=== PATIENT | female | born 1995 ===

== ENCOUNTER 2017-06-16 13:26 | Emergency (ER) | payer MEDICAID ==
[2017-06-16 13:30] VITALS: BP 105/78; PULSE 86; RESP 16; TEMP 98.1; O2SAT 100
--- NOTE | 2017-06-16 13:38 | ED PDOC ---
HPI: General Adult Time Seen by Provider: 06/16/17 13:31 Chief Complaint (Nursing): ENT Problem Chief Complaint (Provider): Sore Throat History Per: Patient History/Exam Limitations: no limitations Onset/Duration Of Symptoms: Days (x4) Current Symptoms Are (Timing): Still Present Additional Complaint(s): Tanvi Brown, a 22 year old female presents to the emergency department complaining of sore throat, onset . She has a past medical history of asthma. Denies fever, abdominal pain, or rash. Reports no sick contacts or recent travels. PMD:Shaik Gregorio Past Medical History Reviewed: Historical Data, Nursing Documentation, Vital Signs Vital Signs: Last Vital Signs Temp 98.1 F 06/16/17 13:28 Pulse 86 06/16/17 13:28 Resp 16 06/16/17 13:28 BP 105/78 06/16/17 13:28 Pulse Ox 100 06/16/17 13:38 - Medical History PMH: Asthma - Surgical History Surgical History: No Surg Hx - Family History Family History: States: Unknown Family Hx - Social History Current smoker - smoking cessation education provided: No Alcohol: Social Drugs: Denies - Immunization History Hx Tetanus Toxoid Vaccination: Yes - Home Medications Home Medications: Ambulatory Orders Medication Instructions Recorded Ciprofloxacin HCl [Cipro] 500 mg PO BID #14 tab 07/13/14 Nitrofurantoin Macrocrystals 100 mg PO BID #10 cap 05/02/15 [Macrobid] Cephalexin [cephalexin] 500 mg PO BID #20 cap 06/12/15 Amoxicillin [Amoxil 500 mg Cap] 500 mg PO TID #30 cap 06/16/17 Naproxen [Naprosyn] 500 mg PO BID PRN #30 tab 06/16/17 - Allergies Allergies/Adverse Reactions: Allergies Allergy/AdvReac Type Severity Reaction Status Date / Time No Known Allergies Allergy Verified 07/13/14 21:24 Review of Systems ROS Statement: Except As Marked, All Systems Reviewed And Found Negative Constitutional: Negative for: Fever, Chills ENT: Positive for: Throat Pain Gastrointestinal: Negative for: Abdominal Pain Skin: Negative for: Rash Physical Exam - Reviewed Nursing Documentation Reviewed: Yes Vital Signs Reviewed: Yes - Physical Exam Appears: Positive for: Well, Non-toxic, No Acute Distress Head Exam: Positive for: ATRAUMATIC, NORMAL INSPECTION, NORMOCEPHALIC Skin: Positive for: Normal Color, Warm, Dry Eye Exam: Positive for: EOMI, Normal appearance, PERRL ENT: Positive for: Pharyngeal Erythema, Tonsillar Exudate, Tonsillar Swelling, Other (Bilateral cervical lymphadenopathy ) Neck: Positive for: Normal, Painless ROM Cardiovascular/Chest: Positive for: Regular Rate, Rhythm. Negative for: Murmur Respiratory: Positive for: Normal Breath Sounds Gastrointestinal/Abdominal: Positive for: Soft. Negative for: Tenderness, Organomegaly Neurologic/Psych: Positive for: Alert, Oriented (x3) - ECG O2 Sat by Pulse Oximetry: 100 (RA) Pulse Ox Interpretation: Normal Medical Decision Making Medical Decision Making: Time: 13:36 Initial Plan: --Throat Culture Clinical Impression: Pharyngitis Upon provider evaluation patient is medically stable, and requires no further treatment in the ED at this time. Patient will be discharged home with Rx for Amoxil and Naprosyn. Counseling was provided and all questions were answered regarding diagnosis and need for follow up with PMD. There is agreement to discharge plan. Return if symptoms persist or worsen. Scribe Attestation: Documented by Candido Salinas, acting as a scribe for Elgin Stark PA-C Provider Scribe Attestation: All medical record entries made by the Scribe were at my direction and personally dictated by me. I have reviewed the chart and agree that the record accurately reflects my personal performance of the history, physical exam, medical decision making, and the department course for this patient. I have also personally directed, reviewed, and agree with the discharge instructions and disposition. Disposition - Clinical Impression Clinical Impression: Pharyngitis - Patient ED Disposition Is Patient to be Admitted: No - Disposition Referrals: [facility] [Outside] [facility] [Outside] Disposition: Routine/Home Disposition Time: 13:36 Condition: STABLE Additional Instructions: Drink plenty of water. Do warm salt water gargles. Rest. Follow up with your PMD in 2 days for further evaluation. Prescriptions: Amoxicillin [Amoxil 500 mg Cap] 500 mg PO TID #30 cap Naproxen [Naprosyn] 500 mg PO BID PRN #30 tab PRN Reason: Pain Instructions: Pharyngitis (ED) Forms: [employer] [facility] (Urdu), [facility] ED School/Work Excuse Print Language: MONGOLIAN
== END 2017-06-16 13:56 | disposition home or self-care (01) ==
LOC: H.ER 13:26
DX: J02.9 Acute pharyngitis, unspecified (principal)

== ENCOUNTER 2017-09-10 16:11 | Emergency (ER) | payer MEDICAID ==
[2017-09-10 16:19] VITALS: BP 132/84; PULSE 87; RESP 18; TEMP 98.5; O2SAT 100
[2017-09-10] MEDS ORDERED: Sodium Chloride 0.9% 1,000 ML IV STA (16:42)
--- NOTE | 2017-09-10 17:07 | ED PDOC ---
HPI: Female Pain Time Seen by Provider: 09/10/17 16:24 Chief Complaint (Nursing): Female Genitourinary Chief Complaint (Provider): Vaginal bleeding x 5 months History Per: Patient History/Exam Limitations: no limitations Onset/Duration Of Symptoms: Days Current Symptoms Are (Timing): Still Present Severity: Moderate Pain Scale Rating Of: 7 Additional Complaint(s): PT state she gets depo injections. PT states that she came today because it has been steady and light but today it was heavy associated with suprapubic cramping. Past Medical History Reviewed: Historical Data, Nursing Documentation, Vital Signs Vital Signs: Last Vital Signs Temp 98.5 F 09/10/17 16:16 Pulse 87 09/10/17 16:16 Resp 18 09/10/17 16:16 BP 132/84 09/10/17 16:16 Pulse Ox 100 09/10/17 16:16 - Medical History PMH: Asthma - Surgical History Surgical History: No Surg Hx - Family History Family History: States: Unknown Family Hx - Living Arrangements Living Arrangements: With Family - Social History Current smoker - smoking cessation education provided: No - Immunization History Hx Tetanus Toxoid Vaccination: Yes - Home Medications Home Medications: Ambulatory Orders Medication Instructions Recorded Ciprofloxacin HCl [Cipro] 500 mg PO BID #14 tab 07/13/14 Nitrofurantoin Macrocrystals 100 mg PO BID #10 cap 05/02/15 [Macrobid] Cephalexin [cephalexin] 500 mg PO BID #20 cap 06/12/15 Amoxicillin [Amoxil 500 mg Cap] 500 mg PO TID #30 cap 06/16/17 Naproxen [Naprosyn] 500 mg PO BID PRN #30 tab 06/16/17 - Allergies Allergies/Adverse Reactions: Allergies Allergy/AdvReac Type Severity Reaction Status Date / Time No Known Allergies Allergy Verified 07/13/14 21:24 Review of Systems ROS Statement: Except As Marked, All Systems Reviewed And Found Negative Constitutional: Negative for: Fever, Chills Gastrointestinal: Positive for: Abdominal Pain. Negative for: Nausea, Vomiting , Diarrhea Genitourinary Female: Positive for: Vaginal Bleeding. Negative for: Dysuria Physical Exam - Reviewed Nursing Documentation Reviewed: Yes Vital Signs Reviewed: Yes - Physical Exam Appears: Positive for: Well, Non-toxic, No Acute Distress Head Exam: Positive for: ATRAUMATIC, NORMAL INSPECTION, NORMOCEPHALIC Skin: Positive for: Normal Color, Warm, DRY Eye Exam: Positive for: Normal appearance ENT: Positive for: Normal ENT Inspection Neck: Positive for: Normal, Painless ROM Cardiovascular/Chest: Positive for: Regular Rate, Rhythm Respiratory: Positive for: Normal Breath Sounds. Negative for: Accessory Muscle Use, Respiratory Distress Gastrointestinal/Abdominal: Positive for: Normal Exam, Soft, Tenderness (Mild suprapubic ) Back: Positive for: Normal Inspection Extremity: Positive for: Normal ROM Neurologic/Psych: Positive for: Alert, Oriented - Laboratory Results Result Diagrams: 09/10/17 17:48 09/10/17 17:48 - ECG O2 Sat by Pulse Oximetry: 100 Pulse Ox Interpretation: Normal Disposition - Clinical Impression Clinical Impression: Irregular menses - Patient ED Disposition Is Patient to be Admitted: No - Disposition Disposition: Routine/Home Disposition Time: 19:07 Condition: GOOD Instructions: Absent or Irregular Periods Forms: [facility] (North Korean)
[2017-09-10 17:57] LABS: BASO % 0.2 % (0.0-2.0); EOS # 0.3 K/uL (0.0-0.7); EOS % 1.9 % (0.0-4.0); HEMOGLOBIN 13.2 g/dL (12.0-16.0); LYMPH # 3.4 K/uL (1.0-4.3); LYMPH % 25.6 % (20.0-40.0); MEAN CELL VOLUME 88.2 fl (81.0-99.0); MEAN CORPUSCULAR HEMOGLOBIN 29.7 pg (27.0-31.0); MEAN CORPUSCULAR HGB CONC 33.6 g/dL (33.0-37.0); MEAN PLATELET VOLUME 9.7 fl (7.2-11.7); MONO # 0.6 K/uL (0.0-0.8); MONO % 4.6 % (0.0-10.0); NEUT # 9.1 K/uL (1.8-7.0); NEUT % 67.7 % (50.0-75.0); RBC 4.47 Mil/uL (3.80-5.20); RED CELL DISTRIBUTION WIDTH 12.3 % (11.5-14.5); WHITE BLOOD COUNT 13.5 K/uL (4.8-10.8)
--- NOTE | 2017-09-10 18:01 | US ---
HISTORY: Vaginal bleeding x 5 months COMPARISON: None available. TECHNIQUE: Transvaginal FINDINGS: UTERUS: Measures 6.4 x 2.8 x 4.1 cm. Normal in size and appearance. No fibroid or other mass lesion seen. ENDOMETRIUM: Measures to mm in diameter. Unremarkable. CERVIX: No cervical abnormality identified. RIGHT OVARY: Measures 2.8 x 2.2 x 2.2 cm. No solid mass. Normal flow. LEFT OVARY: Measures 2.3 x 1.9 x 1.2 cm. No solid mass. Normal flow. FREE FLUID: No significant free fluid noted. OTHER FINDINGS: None. IMPRESSION: Unremarkable pelvic ultrasound.
[2017-09-10 18:09] LABS: ALB/GLOB RATIO 1.1 (1.0-2.1); ALT/SGPT 31 U/L (9-52); AST/SGOT 16 U/L (14-36); BLOOD UREA NITROGEN 13 mg/dl (7-17); CALCIUM 8.9 mg/dL (8.4-10.2); GFR AFRICAN-AMERICAN > 60; GFR NON-AFRICAN AMERICAN > 60
== END 2017-09-10 20:15 | disposition home or self-care (01) ==
LOC: H.ER 16:11
DX: N92.6 Irregular menstruation, unspecified (principal); J45.909 Unspecified asthma, uncomplicated
CPT/HCPCS: 76830; 80053; 81025; 85025; 96360; 99284; J7040

== ENCOUNTER 2017-09-15 11:21 | Emergency (ER) | payer MEDICAID ==
[2017-09-15 11:35] VITALS: BP 116/72; PULSE 96; RESP 20; TEMP 98; O2SAT 98; BMI 30.7
[2017-09-15] MEDS ORDERED: Albuterol-Ipratrop 3 mg / 0.5 (3 ml) UD IH STA (11:53)
--- NOTE | 2017-09-15 11:55 | ED PDOC ---
History of Present Illness History of Present Illness: 22 y/o F c PMHx asthma p/w cough x 3 days and chest pain x 1 day. Cough is frequent, productive of yellow sputum. Denies dyspnea or fever. Patient began having chest pain today across chest, occurs when coughing or taking a deep breath. Denies leg swelling, nausea, vomiting. HPI: Influenza Time Seen by Provider: 09/15/17 11:48 Chief Complaint: Cough, Cold, Congestion Past Medical History Vital Signs: Last Vital Signs Temp 98 F 09/15/17 11:34 Pulse 96 H 09/15/17 11:34 Resp 20 09/15/17 11:34 BP 116/72 09/15/17 11:34 Pulse Ox 98 09/15/17 11:34 - Medical History PMH: Asthma - Family History Family History: States: Unknown Family Hx - Immunization History Hx Tetanus Toxoid Vaccination: Yes - Home Medications Home Medications: Ambulatory Orders Medication Instructions Recorded Ciprofloxacin HCl [Cipro] 500 mg PO BID #14 tab 07/13/14 Nitrofurantoin Macrocrystals 100 mg PO BID #10 cap 05/02/15 [Macrobid] Cephalexin [cephalexin] 500 mg PO BID #20 cap 06/12/15 Amoxicillin [Amoxil 500 mg Cap] 500 mg PO TID #30 cap 06/16/17 Naproxen [Naprosyn] 500 mg PO BID PRN #30 tab 06/16/17 Famotidine [Pepcid] 1 tab PO BID #14 tab 09/15/17 Guaifenesin [Mucinex] 1,200 mg PO Q12H #18 ter 09/15/17 Ibuprofen [Motrin] 600 mg PO Q6 #25 tab 09/15/17 - Allergies Allergies/Adverse Reactions: Allergies Allergy/AdvReac Type Severity Reaction Status Date / Time No Known Allergies Allergy Verified 09/15/17 11:42 Review of Systems ROS Statement: Except As Marked, All Systems Reviewed And Found Negative Constitutional: Negative for: Fever Gastrointestinal: Negative for: Abdominal Pain Physical Exam - Physical Exam Comments: Gen: NAD Head: NC Eyes: No scleral icterus ENT: MMM Neck: Supple Chest: No deformity CV: Regular rate Lungs: CTA b/l Abd: Soft, NT Back: No CVA tenderness Extremities: No edema Skin: No rash Neuro: Alert, no focal deficit Medical Decision Making Medical Decision Making: EKG NSR 90 bpm, no ST/T wave changes CXR no consolidation Symptoms consistent with chest wall pain from coughing. Advised albuterol pump, NSAIDs, mucinex. - ECG O2 Sat by Pulse Oximetry: 98 Disposition - Clinical Impression Clinical Impression: Cough, Chest wall pain - Patient ED Disposition Is Patient to be Admitted: No - Disposition Disposition: Routine/Home Disposition Time: 12:57 Condition: STABLE Prescriptions: Famotidine [Pepcid] 1 tab PO BID #14 tab Guaifenesin [Mucinex] 1,200 mg PO Q12H #18 ter Ibuprofen [Motrin] 600 mg PO Q6 #25 tab Instructions: Cough in Adults Forms: [facility] (French)
[2017-09-15] MEDS ORDERED: Albuterol-Ipratrop 3 mg / 0.5 (3 ml) UD ONE (12:13)
--- NOTE | 2017-09-15 13:25 | RAD ---
HISTORY: cough COMPARISON: No prior. TECHNIQUE: Chest PA and lateral FINDINGS: LUNGS: No active pulmonary disease. PLEURA: No significant pleural effusion identified. No pneumothorax apparent. CARDIOVASCULAR: Normal. OSSEOUS STRUCTURES: No significant abnormalities. VISUALIZED UPPER ABDOMEN: Normal. OTHER FINDINGS: None. IMPRESSION: No active disease.
== END 2017-09-15 13:30 | disposition home or self-care (01) ==
LOC: H.ER 11:21
DX: R05 Cough (principal); R07.89 Other chest pain; J45.909 Unspecified asthma, uncomplicated
CPT/HCPCS: 71046; 81025; 96372; 99282; J1885

== ENCOUNTER 2017-11-30 22:19 | Emergency (ER) | payer SELFPAY ==
[2017-11-30 22:19] VITALS: BMI 30.7
[2017-11-30 23:01] VITALS: BP 131/73; PULSE 73; RESP 16; TEMP 97.8; O2SAT 96
--- NOTE | 2017-11-30 23:21 | ED PDOC ---
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 Patient reports localized pain rated 6/10 and swelling to the ankle. Patient did not take any medication prior to arrival. Patient denies any other injury at this time, (-) LOC (-) head injury. Patient denies any prior ankle injury. PMD: Birdie LMP: 3 months ago (on Depo) Past Medical History Reviewed: Historical Data, Nursing Documentation, Vital Signs Vital Signs: Last Vital Signs Temp 97.8 F 11/30/17 22:59 Pulse 73 11/30/17 22:59 Resp 16 11/30/17 22:59 BP 131/73 11/30/17 22:59 Pulse Ox 96 11/30/17 22:59 - Medical History PMH: Asthma - Surgical History Other surgeries: /D&C - Family History Family History: States: Unknown Family Hx - Social History Current smoker - smoking cessation education provided: Yes (<10 cig/day) Alcohol: None Drugs: Denies - Home Medications Home Medications: Ambulatory Orders Medication Instructions Recorded Ciprofloxacin HCl [Cipro] 500 mg PO BID #14 tab 07/13/14 Nitrofurantoin Macrocrystals 100 mg PO BID #10 cap 05/02/15 [Macrobid] Cephalexin [cephalexin] 500 mg PO BID #20 cap 06/12/15 Amoxicillin [Amoxil 500 mg Cap] 500 mg PO TID #30 cap 06/16/17 Naproxen [Naprosyn] 500 mg PO BID PRN #30 tab 06/16/17 Famotidine [Pepcid] 1 tab PO BID #14 tab 09/15/17 Guaifenesin [Mucinex] 1,200 mg PO Q12H #18 ter 09/15/17 Ibuprofen [Motrin] 600 mg PO Q6 #25 tab 09/15/17 Naproxen 500 mg PO BID #20 tab 12/01/17 - Allergies Allergies/Adverse Reactions: Allergies Allergy/AdvReac Type Severity Reaction Status Date / Time No Known Allergies Allergy Verified 11/30/17 22:59 Review of Systems ROS Statement: Except As Marked, All Systems Reviewed And Found Negative Musculoskeletal: Positive for: Other (ankle pain) Physical Exam - Reviewed Nursing Documentation Reviewed: Yes Vital Signs Reviewed: Yes - Physical Exam Appears: Positive for: Well, Non-toxic, No Acute Distress (on cell phone, resting comfortably.) Head Exam: Positive for: NORMOCEPHALIC Skin: Positive for: Normal Color, Warm, Dry Eye Exam: Positive for: EOMI, PERRL ENT: Positive for: Other (Airway patent, Uvula midline.) Neck: Positive for: Painless ROM, Supple Cardiovascular/Chest: Positive for: Regular Rate, Rhythm Respiratory: Positive for: Normal Breath Sounds Back: Negative for: Vertebral Tenderness Extremity: Positive for: Tenderness (to right ankle (Lateral> medial)), Capillary Refill (intact), Swelling (mild effusion and faint ecchymosis to lateral malleolus), Other (sensation intact throughout.). Negative for: Normal ROM (decreased secondary to pain), Pedal Edema, Calf Tenderness (or palpable cord), Deformity Neurologic/Psych: Positive for: Alert, Oriented (x3), Gait (steady with a limp) - ECG O2 Sat by Pulse Oximetry: 96 (RA) Pulse Ox Interpretation: Normal Medical Decision Making Medical Decision Making: Initial Impression: Acute ankle pain r/o fracture s/p fall Plan: -Naproxen 500mg PO -Tramadol 50mg PO (Patient not driving home) -Right Ankle XR 3 views -Re-evaluation 0000 XR reviewed: no acute fracture or dislocation (?) cyst of distal, medial tibia Patient advised that official radiology read of XR is still pending and will call the patient if there is any discrepancy within 24 hours. XRs reviewed with podiatry resident, Dr Serrano who states patient can follow up outpatient with podiatry clinic. Andrzej wrap applied to ankle by ED RN. Placement and application verified by Rufus PURVIS NV intact after placement. Patient supplied with crutches and instructed on crutch walking. RICE encouraged. On re-evaluation, patient reports improvement of symptoms. On exam, patient remains AAOx3, in no acute distress. On exam, neck is supple, lungs CTA, cardiac RRR, abdomen is soft and non-tender, neuro exam shows no focal findings. VSS, stable for discharge. RICE encouraged. Diagnostic results d/w the patient in great detail. Dx of acute ankle pain/ sprain s/p fall d/w the patient. Based on history, exam and diagnostic results plan will be for discharge and outpatient follow up with podiatry. Advised to follow up with primary care physician/podiatry in 1-2 days without fail. Advised to take medication as prescribed. Return to the emergency room at any time for any new or worsening symptoms. Patient states she fully agrees with and understands discharge instructions. States that she agrees with the plan and disposition. Verbalized and repeated discharge instructions and plan. I have given the patient opportunity to ask any additional questions. Disposition - Clinical Impression Clinical Impression: Ankle pain, Fall on stairs, Ankle sprain - Patient ED Disposition Is Patient to be Admitted: No Counseled Patient/Family Regarding: Studies Performed, Diagnosis, Need For Followup, Rx Given - Disposition Referrals: Podiatry Clinic [Outside] Disposition: Routine/Home Disposition Time: 00:01 Condition: STABLE Additional Instructions: FOLLOW UP WITH PMD/PODIATRY IN 1-2 DAYS WITHOUT FAIL. RETURN TO ED WITH ANY NEW OR WORSENING SYMPTOMS. TAKE MEDICATION NEEDED FOR DISCOMFORT. REST ICE COMPRESS (BANDAGE) ELEVATE. Prescriptions: Naproxen 500 mg PO BID #20 tab Instructions: Ankle Sprain Forms: [employer] (Arabic) Print Language: SOUTH SUDANESE - POA Present On Arrival: Falls Or Trauma
[2017-11-30] MEDS ORDERED: Naproxen 500 MG TAB PO STA (23:24)
[2017-11-30] MEDS ORDERED: Naproxen 500 MG TAB PO ONE (23:26)
--- NOTE | 2017-12-01 07:51 | RAD ---
PROCEDURE: Right Wrist Radiographs. HISTORY: JOINT PAIN S/P FALL COMPARISON: None. FINDINGS: BONES: Normal. No fracture. JOINTS: Normal. No dislocation. SOFT TISSUES: Ossification of the inferior syndesmosis. Lateral soft tissue swelling. . OTHER FINDINGS: None. IMPRESSION: Ossification of the inferior syndesmosis. Lateral soft tissue swelling. .
== END 2017-12-01 00:14 | disposition home or self-care (01) ==
LOC: H.ER 22:19
DX: S93.402A Sprain of unspecified ligament of left ankle, initial encounter (principal); W10.9XXA Fall (on) (from) unspecified stairs and steps, initial encounter; Y92.89 Other specified places as the place of occurrence of the external cause